=== PATIENT | male | born 2005 | race Caucasian/White ===

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

== ENCOUNTER 2025-02-18 13:50 | Emergency (ER) | payer BC, SELFPAY ==
[2025-02-18 13:50] VITALS: BP 153/102; PULSE 93; RESP 16; TEMP 36.6; O2SAT 100
--- NOTE | 2025-02-18 14:25 | ECG_ITS ---
Test Date: 2025-02-18 15:00:10 Measurements Intervals [place] Rate: 56 P: 21 MD: 144 QRS: 75 QRSD: 97 T: 5 QT: 430 QTc: 419 Interpretive Statements SINUS BRADYCARDIA INCOMPLETE RIGHT BUNDLE BRANCH BLOCK MINIMAL Q WAVES- ANTEROLAT/INF LEADS BORDERLINE ECG No previous ECG available for comparison Electronically Signed On 02-18-2025 15:01:56 CDT by Armand Larkin D.O.
--- OUTSIDE RECORDS SUMMARY | 2025-02-18 14:36 | XMS_ITS | Clinical Summary ---
Author Organization [facility] Address [address] [address] Care Team Providers Care Digital Service Engineer Name Role Phone Suhas Polo MD Primary Care Provider Source Comments [facility],non-owned Affiliates and Associated Physician Practices is amultiple site organization consisting of ambulatory clinics and hospital sitesin [place], [place], [place] and [place]. This disclosure is being madepursuant to the Care Everywhere program and may not contain all information available regarding this patient. Last updated 18.[facility] Allergies No known active allergies Medications * Be aware that medications may not be up to date on this document. Alwaysverify current medications with the patient. methylphenidate (RITALIN) 20 MG tablet Take 20 mg by mouth daily before breakfast Active albuterol (PROVENTIL;VENT SENDY) (2.5 MG/3ML) 0.083% nebulizer solution as needed 0 6 Active ibuprofen (MOTRIN) 400 MG tablet Take 1 (one) tablet by mouth every 6 hours as needed for Pain 100 tablet 1 Active acetaminophen (TYLENOL) 500 MG capsule Take 1 (one) capsule by mouth every 6 hours as needed for Pain 100 capsule 1 Active loratadine (CLARITIN) 10 MG tablet Take 10 mg by mouth once daily 1 Active Active Problems Problem Noted Date Diagnosed Date History of laparoscopic appendectomy 04/26/2021 Assessment & Plan (04/26/2021 1:41 PM SPINNING MULE OPERATOR): We saw iQ Anglin in clinic for surgical follow up. Qi Anglin is a 15 year old male s/p laparoscopic appendectomy for acute appendicitis unruptured . He has been doing well, eating and stooling well. He has minimal pain and has had no fevers. On exam, his incisions are healing well, and there is no sign of erythema or hernia visualized via telehealth and mom's observation The pathology/labs confirmed Appendix, laparoscopic appendectomy: - Acute appendicitis with periappendicitis and serositis. In summary, Qi Anglin is doing well, and is off all restrictions. He can resume normal activities, including swimming. It has been a pleasure to take care of Qi Anglin. I would be happy to see him if there are any other issues, but at this time, follow up is prn. Acute appendicitis 04/09/2021 Seizure, convulsion 12/14/2014 Overview (06/30/2015): First episode of seizure on 12/09/2014 at school. Description- collapsed while walking out of class. He was staring off when turned over and then he had frothing from mouth with apparently no clonic movements. He was confused after the event (duration likely less than a minute) and was normal after 2 hrs. No post ictal weakness. No seizures since. Has learning problems at school and his behavior has been aggressive behavior. 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 Discussed indications for AED. Needs evaluation by school for learning problems. If necessary will consult Neuropsychology Seizure precautions discussed as well as seizure first aid Parents to call with concerns. Headache 12/14/2014 Overview (02/27/2015): Headaches for last 4 yrs that have been getting worse and now 1-2 times a week. They have migrainous characters- moderate severity, throbbing, helped by sleep and likely photosensitivity. Change in behavior noticed by mom over the last few years and his school performance too has been declining. Concern for underlying intracranial space occupying lesion. Plan- Use tylenol prn for now Will consider prophylaxis once MRI brain done to decide appropriate treatment Discussed headache precautions- diet, sleep and hydration Vasovagal syncope 12/14/2014 Overview (12/14/2014): Multiple episodes in the past 2 yrs especially precipitated by pain (venipuncture or throat swab) and once by heat. Feels dizzy and falls but for short time- 2-3 min followed by return to normal activities. No episode known without preceding stress. Infrequent episodes. He is never confused after the syncope Plan- Discussed etiology and management To sit down immediately if he feels dizzy Hydration emphasized- mom understands Convulsions Learning problem Family History Medical History Relation Name Comments Epilepsy Father Cancer - Colon Maternal Grandfather Stroke Maternal Grandmother Schizophrenia Maternal Uncle Seizures Maternal Uncle febrile Tumor Maternal Uncle at 28 yr s age- brain tumor Relation Name Status Comments Father Maternal Grandfather Maternal Grandmother Maternal Uncle Social History Tobacco Use Types Packs/Day Years Used Date Smoking Tobacco: Never Smokeless Tobacco: Never Alcohol Use Standard Drinks/Week Comments Not Asked 0 (1 standard drink = 0.6 oz pur e alcohol) Sex and Gender Information Value Date Recorded Sex Assigned at Not on file Legal Sex Male 3:43 PM CDT Gender Identity Not on file Sexual Orientation Not on file Last Filed Vital Signs Vital Sign Reading Time Taken Comments Blood Pressure 138/86 04/10/2021 8:10 AM SPINNING MULE OPERATOR Pulse 76 04/10/2021 8:10 AM SPINNING MULE OPERATOR Temperature 36.9 C (98.4 F) 04/10/2021 8:10 AM SPINNING MULE OPERATOR Respiratory Rate 16 04/10/2021 8:10 AM SPINNING MULE OPERATOR Oxygen Saturation 96% 04/10/2021 8:10 AM SPINNING MULE OPERATOR Inhaled Oxygen Concentration - - Weight 100.9 kg (222 lb 7.1 oz) 021 6:25 PM SPINNING MULE OPERATOR Height 190.5 cm (6' 3) 04/09/2021 6:25 PM SPINNING MULE OPERATOR Body Mass Index 27.8 04/09/2021 6:25 PM SPINNING MULE OPERATOR Body Mass Index Percentile 95.21% 04/09/2021 6:2 5 PM SPINNING MULE OPERATOR Growth Chart: CDC (Boys, 2-2 0 Years) Plan of Treatment Health Maintenance Due Date Last Done Comments HIV SCREENING 2020 HPV VACCINE (1 - Male 3-dose series) 2020 MENINGOCOCCAL (Group B) VACC INE SHARED DECISION-MAKING (1 of 2 - Standard) 2021 HEPATITIS C SCREENING 05/12/2023 DEPRESSION SCREENING 04/22/2024 DTAP/TDAP/TD VACCINES (1 - Tdap) 2024 HEPATITIS B VACCINE (1 of 3 - 19+ 3-dose series) 2024 COVID-19 VACCINE (1 - 2023-2 5 season) 2024 INFLUENZA VACCINE (#1) 2024 ZOSTER VACCINE (1 of 2) 2055 HIB VACCINE Aged Out No longer eligi ble based on patient's age to complete this topic MENINGOCOCCAL GROUPS A/C/Y/W VACCINE Aged Out No longer eligible b ased on patient's age to complete this topic PNEUMOCOCCAL VACCINE Aged Out No long er eligible based on patient's age to complete this topic Insurance MEDICAID - [facility] Advance Directives * Full Code (Latest Code Status on File) Date Activated Date Inactivated Comments 04/09/2021 6:45 PM 04/10/2021 11:40 AM Care Teams Digital Service Engineer Relationship Specialty Start Date End Date Suhas Polo MD [address] [place] [address] PCP - General Family Medicine 04/09/21
[2025-02-18] MEDS: SODIUM CHLORIDE 0.9% IV 1,000 ML 999 ML IV CONT (14:38)
[2025-02-18] MEDS: ONDANSETRON INJ 4 MG/2 ML VIAL IV PUSH (14:40)
[2025-02-18 14:42] LABS: Hematocrit 46.6 % (40.0-54.0); Hemoglobin 16.8 g/dL (14.0-18.0); Immature Granulocyte Percent A 0.3 % (0.0-0.0); Lymphocytes Absolute Auto 1.84 K/mm3 (1.10-4.50); Mean Corpuscular HGB Conc 36.1 g/dL (32-36); Mean Corpuscular Hemoglobin 30.3 pg (27.0-31.0); Mean Corpuscular Volume 84.1 fL (78.0-102.0); Nucleated Red Blood Cells Absolute Auto 0.00 K/mm3 (0.00-0.00); Nucleated Red Blood Cells Perc 0.0 % (0-0.0); Platelet Count Result 262 K/mm3 (150-420); Red Blood Count 5.54 M/mm3 (4.70-6.10); White Blood Count 10.5 K/mm3 (4.8-10.8)
[2025-02-18] MEDS: PANTOPRAZOLE SODIUM IV 40 MG VIAL IV PUSH (14:43)
[2025-02-18] MEDS: KETOROLAC 30 MG/ML VIAL (*BKC) IV PUSH (14:52)
[2025-02-18 14:54] LABS: Alanine Aminotransferase 14 U/L (6-50); Albumin Level 5.1 g/dL (3.7-5.6); Alkaline Phosphatase 76 U/L (58-237); Anion Gap 11 mmol/L (4-12); Aspartate Amino Transferase 22 U/L (17-59); Bilirubin,Total 1.2 mg/dL (0.2-1.3); Blood Urea Nitrogen 9 mg/dL (8-21); Calcium 10.0 mg/dL (8.9-10.7); Carbon Dioxide 25 mmol/L (22-30); Chloride 107 mmol/L (98-107); Estimated CRCL calculation 121 ml/min; Estimated Glomerular Filt Rate > 60; Glucose 101 mg/dL (65-110); Lipase 37 U/L (23-300); Osmolality Calculated 294 mOsm/kg (285-295); Potassium 3.6 mmol/L (3.4-5.0); Sodium 143 mmol/L (134-143); Total Protein 7.7 g/dL (6.3-8.6)
[2025-02-18 14:56] LABS: INR 1.0; Partial Thromboplastin Time 26.0 Sec (23.9-30.70); Prothrombin Time 11.2 Seconds (9.50-12.1)
[2025-02-18] MEDS: METOCLOPRAMIDE HCL INJ 10 MG/2 ML VIAL IV PUSH (15:06)
--- NOTE | 2025-02-18 15:30 | ED.ABDPAIN ---
HPI - Abdominal Pain General Chief Complaint: Abdominal Pain Stated Complaint: vomiting x 2weeks Time Seen by Provider: 02/18/25 14:07 Source: patient and family Mode of arrival: ambulatory Limitations: no limitations History of Present Illness HPI narrative: This is a 19-year-old male with no significant past medical history that is a marijuana user, presents with some left lower abdominal pain rates it as 6/10 with no dysuria no hematuria no flank pain no hematuria no fever chills does have nausea with episodes of vomiting for the last 2 to 3 weeks there is no shortness of breath no chest pain. Patient was evaluated at another local ER and had a ultrasound of the gallbladder and CT of the abdomen and pelvis with contrast performed which showed no abnormalities. MD elicited complaint: abdominal pain Onset (ago): week(s) Pain Consistency: intermittent Location: LLQ Severity: moderate Pain scale (0-10): 6 Related Data Allergies Allergy/AdvReac Type Severity Reaction Status Date / Time No Known Allergies Allergy Verified 03/30/24 19:26 Review of Systems Review of Systems: All systems reviewed & are unremarkable except as noted in HPI and below PMFSH Past Medical History Medical History Abdominal pain Patient denies medical problems Social History Social History Gender identity (if verbalized by the patient): Male Exam Const: General: healthy appearing and no acute distress Nutritional Appearance: well nourished Orientation/consciousness: patient oriented x3 Limitations: no limitations Chest: Chest palpation & inspection: normal inspection of the chest Resp: Effort & Inspection: normal respiratory effort Auscultation: clear to auscultation bilaterally Cardio: Rate: regular rate Rhythm: regular rhythm GI: GI Palp: Yes Soft to palpation and Yes Tenderness to palpation present (GI) Auscultation: normal bowel sounds : General: Yes bladder normal to palpation Back/Spine/Pelvis: Back: no CVA tenderness Skin: General skin exam: normal color Rashes: no rashes Neuro: General: patient oriented x3, moves all extremities, no meningeal signs and no focal motor deficits Extrem: General: normal to inspection, no clubbing, cyanosis or edema and no pedal edema Course Course Emergency Course: Medical decision making narrative: Patient was evaluated by myself in the emergency department. History is obtained from patient who is an independent historian and physical exam performed and witnessed by the nurse and tech. External medical records were reviewed at this time. Patient was recently seen at [facility] in [place] and had a blood work and CT scan with contrast and ultrasound of the gallbladder was performed and records were sent and reviewed which showed no abnormalities acutely. During this ER visit the patient received IV fluids and received 4 of IV Zofran and 10 of IV Reglan and 30mg IV Toradol. Lab work performed here in the emergency department in show any acute abnormalities. Repeat assessment: Doing well on repeat exam with no acute distress Symptoms improved since arrival to the emergency department Repeat vitals are stable Patient agrees with discussion and after shared medical decision-making and agrees with discharge. All questions answered to patient's satisfaction. Revised follow-up primary within the next 3 to 5 days further evaluation and treatment. Vital Signs Vital signs: Vital Signs Temperature 36.6 C 02/18/25 13:50 Pulse Rate 93 02/18/25 13:50 Respiratory Rate 16 02/18/25 13:50 Blood Pressure 153/102 H 02/18/25 13:50 Pulse Oximetry 100 02/18/25 13:50 Oxygen Delivery Room Air 02/18/25 13:50 Temperature 36.6 C 02/18/25 13:50 Pulse Rate 93 02/18/25 13:50 Respiratory Rate 16 02/18/25 13:50 Blood Pressure 153/102 H 02/18/25 13:50 Pulse Oximetry 100 02/18/25 13:50 Oxygen Delivery Room Air 02/18/25 13:50 MDM - Abdominal Pain Lab Data 02/18/25 14:37 02/18/25 14:37 Labs: Lab Results 02/18/25 Range/Units 14:37 WBC 10.5 (4.8-10.8) K/mm3 RBC 5.54 (4.70-6.10) M/mm3 Hgb 16.8 (14.0-18.0) g/dL Hct 46.6 (40.0-54.0) % MCV 84.1 (78.0-102.0) fL MCH 30.3 (27.0-31.0) pg MCHC 36.1 H (32-36) g/dL RDW 12.3 (11.6-14.4) % Plt Count 262 (150-420) K/mm3 MPV 10.2 (8.7-11.0) fl Immature Gran % (Auto) 0.3 H (0.0-0.0) % Neut % (Auto) 75.0 H (50.0-70.0) % Lymph % (Auto) 17.5 L (18.0-42.0) % [place] % (Auto) 6.4 (2.0-11.0) % Eos % (Auto) 0.3 L (1.0-6.0) % Baso % (Auto) 0.5 (0.0-1.0) % Lymph # (Auto) 1.84 (1.10-4.50) K/mm3 [place] # (Auto) 0.67 (0.10-0.90) K/mm3 Eos # (Auto) 0.03 (0.02-0.50) K/mm3 Baso # (Auto) 0.05 (0.00-0.10) K/mm3 Abs Immat Gran (auto) 0.03 H (0.00-0.00) K/mm3 Absolute Neuts (auto) 7.92 H (1.70-7.20) K/mm3 Absolute Nucleated RBC 0.00 (0.00-0.00) K/mm3 Nucleated RBC % 0.0 (0-0.0) % PT 11.2 (9.50-12.1) Seconds INR 1.0 APTT 26.0 (23.9-30.70) Sec Sodium 143 (134-143) mmol/L Potassium 3.6 (3.4-5.0) mmol/L Chloride 107 (98-107) mmol/L Carbon Dioxide 25 (22-30) mmol/L Anion Gap 11 (4-12) mmol/L BUN 9 (8-21) mg/dL Creatinine 1.01 (0.7-1.3) mg/dL Estim Creat Clear Calc 121 ml/min Estimated GFR > 60 (59 - ) Glucose 101 (65-110) mg/dL Calculated Osmolality 294 (285-295) mOsm/kg Lactic Acid 1.2 (0.4-2.0) mmol/L Calcium 10.0 (8.9-10.7) mg/dL Total Bilirubin 1.2 (0.2-1.3) mg/dL AST 22 (17-59) U/L ALT 14 (6-50) U/L Alkaline Phosphatase 76 (58-237) U/L Total Protein 7.7 (6.3-8.6) g/dL Albumin 5.1 (3.7-5.6) g/dL Lipase 37 (23-300) U/L Critical Care Time Critical Care Time Critical Care Time: No Discharge Plan Discharge Clinical Impression: Gastroenteritis Patient Disposition: Home Condition: Stable Instructions: Antibiotic Form, Clear Liquid Diet (ED), Gastroenteritis (ED), Acute Nausea and Vomiting (ED) Additional Instructions: Advised to take medication as prescribed and follow-up with primary care physician within next 3 to 5 days further evaluation treatment. Patient Language: Portuguese Prescriptions: No Action amoxicillin 500 mg capsule 1,000 mg PO Q8H Qty: 21 0RF Follow-up/Referrals: Mike,Kelsea Watts MD [Primary Care Provider, Unknown]
[2025-02-18 15:35] LABS: Add Urine Microscopic? YES; Appearance Urine Clear (Clear); Glucose Urine UA Negative (Negative); Leukocyte Esterase Ur Negative LEU/UL (Negative); Nitrate Urine Negative (Negative); Specific Grav Ur 1.020 (1.010-1.020)
[2025-02-18 16:05] VITALS: BP 119/74; PULSE 80; RESP 14; O2SAT 97
--- NOTE | 2025-02-18 16:22 | PC.NURSE ---
On 02/18/25, the student, [NORTH GOLDEN ], provided care and completed [facility] documentation on this patient. I have reviewed the student's documentation and agree with the findings.
== END 2025-02-18 16:15 | disposition home or self-care (01) ==
PROVIDERS: Emergency Provider Emergency Medicine; PCP Family Medicine
DX: K52.9 Noninfective gastroenteritis and colitis, unspecified (principal)
CPT/HCPCS: 36415; 80053; 81001; 83605; 83690; 85025; 85610; 85730; 93005; 96361; 96374; 96375; 99284; J1885; J2405; J2470; J2765; J7030